=== PATIENT | female | born 1985 | race Caucasian/White ===

== ENCOUNTER → 2018-10-25 11:47 | Outpatient (CLI) | payer OTHER, SELFPAY ==
[2018-10-25 12:01] LABS: Bacteria Urine None Seen
[2018-10-25 12:28] LABS: Add Manual Diff / Slide Review NO; Basophils Percent Auto 0.8 % (0-2); Hematocrit 41.7 % (36-46); Hemoglobin 14.1 g/dL (12.0-16.0); Lymphocytes Percent Auto 26.2 % (25-40); Mean Corpuscular HGB Conc 33.9 % (30-36); Mean Corpuscular Hemoglobin 27.9 PG (26-34); Mean Corpuscular Volume 82.5 fL (80-100); Monocytes Percent Auto 5.8 % (3-14); Neutrophils Absolute Auto 6500 /uL (3000-5900); Neutrophils Percent Auto 64.2 % (50-75); Platelet Count 312 X10^3/uL (150-400); Red Blood Cell Count 5.05 X10^6/uL (4.0-5.2); Red Cell Distribution Width 13.5 % (11.6-14.8); White Blood Cell Count 10.2 X10^3/uL (4.5-11.0)
[2018-10-25 12:55] LABS: Alanine Aminotransferase 38 IU/L (9-52); Albumin 4.3 g/dL (3.5-5.0); Albumin Globulin Ratio 1.7 (1.0-2.8); Alkaline Phosphatase 94 U/L (38-126); Aspartate Aminotransferase 28 IU/L (14-36); BUN Creatinine Ratio 15.7 (6-22); Bilirubin Total 0.2 mg/dL (0.2-1.3); Blood Urea Nitrogen 11 mg/dL (7-17); Calcium 9.4 mg/dL (8.4-10.2); Carbon Dioxide 24 mmol/L (22-32); Chloride 104 mmol/L (98-107); Cholesterol 150 mg/dL (140-199); Estimated Glomerular Filt Rate > 60.0 mL/min (>60); Globulin 2.6 g/dL (1.7-4.1); Glucose 104 mg/dL (70-100); HDL Cholesterol 19 mg/dL (40-60); Potassium 4.8 mmol/L (3.4-5.1); Sodium 142 mmol/L (137-145); Total Protein 6.9 g/dL (6.3-8.2)
[2018-10-25 13:02] LABS: HEMOLYSIS 16 (0-50)
[2018-10-25 13:05] LABS: Appearance Urine UA CLOUDY; Bilirubin Urine UA NEGATIVE (NEGATIVE); Color Urine UA YELLOW; Glucose Urine UA NEGATIVE (Normal); Ketones Urine UA NEGATIVE (NEGATIVE); Leukocyte Esterase Urine UA 2+ (NEGATIVE); Nitrite Urine UA NEGATIVE (Negative); Occult Blood Urine UA 2+ (Negative); Protein Urine UA TRACE (Negative); Specific Gravity Urine UA 1.025 (1.000-1.035); Triglycerides 759 mg/dL (35-150); Urobilinogen Urine UA 0.2 E.U./dL (0.2); pH Urine UA 6.5 (4.5-8.0)
[2018-10-25 13:16] LABS: Thyroid Stimulating Hormone 1.15 uIU/mL (0.47-4.68)
[2018-10-25 13:31] LABS: RBC Urine 5-10/HPF (0-5/HPF)
[2018-10-25 13:32] LABS: Culture Indicated Urine Cult Not Indicated; Squamous Epithelial Cell Urine 5-10 /HPF; WBC Urine 10-30/HPF (0-5/HPF)
[2018-10-28 18:00] LABS: HSV 1 IgM Screen Negative (Negative); HSV 2 IgM Screen Negative (Negative)
== END ==
PROVIDERS: Family Provider Family Medicine; PCP Family Medicine; Visit Provider Family Medicine
DX: F41.9 Anxiety disorder, unspecified (principal); R30.0 Dysuria
CPT/HCPCS: 36415; 80053; 80061; 81001; 84443; 85025; 86694

== ENCOUNTER → 2018-10-31 12:27 | Outpatient (CLI) | payer OTHER, SELFPAY | PROVIDERS: Family Provider Family Medicine; PCP Family Medicine | DX: R30.0 Dysuria (principal) | CPT/HCPCS: 87086 ==

== ENCOUNTER → 2019-08-31 10:02 | Outpatient (CLI) | payer OTHER, SELFPAY ==
[2019-08-31 11:06] LABS: Hemoglobin A1C% w Est Avg Glu 5.4 % (4.0-6.0)
[2019-08-31 11:19] LABS: Triglycerides 581 mg/dL (35-150)
== END ==
PROVIDERS: PCP Family Medicine; Visit Provider Family Medicine
DX: E78.1 Pure hyperglyceridemia (principal); R73.09 Other abnormal glucose
CPT/HCPCS: 36415; 83036; 84478

== ENCOUNTER 2020-01-26 08:37 | Emergency (ER) | payer OTHER, SELFPAY ==
[2020-01-26 08:48] VITALS: BP 167/101; PULSE 92; RESP 18; TEMP 36; O2SAT 97; BMI 41.5
[2020-01-26 08:54] VITALS: BP 140/90; PULSE 92; RESP 18; O2SAT 97
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
== END 2020-01-26 09:01 | disposition home or self-care (01) ==
PROVIDERS: Emergency Provider Emergency Medicine; PCP Family Medicine
DX: K11.20 Sialoadenitis, unspecified (principal)
CPT/HCPCS: 99281; 99282

== ENCOUNTER 2020-01-27 12:57 | Emergency (ER) | payer OTHER, SELFPAY ==
[2020-01-27 13:05] VITALS: BP 154/96; PULSE 86; RESP 16; TEMP 36.9; O2SAT 99; BMI 41.5
[2020-01-27 15:00] VITALS: BP 140/90; PULSE 82; RESP 17; O2SAT 99
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
== END 2020-01-27 15:00 | disposition home or self-care (01) ==
PROVIDERS: Emergency Provider Nurse Practitioner Family; PCP Family Medicine
DX: K11.20 Sialoadenitis, unspecified (principal)
CPT/HCPCS: 99281

== ENCOUNTER → 2021-02-05 11:16 | Outpatient (CLI) | payer OTHER, SELFPAY ==
[2021-02-05] MEDS: COVID-19 VACC, Ad26(JANSSEN)/PF 0.5 ML IM (11:40)
== END ==
PROVIDERS: PCP Family Medicine; Visit Provider Internal Medicine
DX: Z23 Encounter for immunization (principal)
CPT/HCPCS: 0031A; 91303

== ENCOUNTER → 2021-06-24 09:50 | Outpatient (CLI) | payer OTHER, MEDICAID, SELFPAY ==
[2021-06-24 10:51] LABS: Hemoglobin A1C% w Est Avg Glu 6.3 % (4.0-6.0)
[2021-06-24 10:57] LABS: Cholesterol 154 mg/dL (140-199); HDL Cholesterol 20 mg/dL (40-60)
[2021-06-24 11:13] LABS: Triglycerides 642 mg/dL (35-150)
== END ==
PROVIDERS: PCP Family Medicine; Referring Provider Family Medicine; Visit Provider Family Medicine
DX: E66.01 Morbid (severe) obesity due to excess calories (principal); E78.1 Pure hyperglyceridemia; F17.200 Nicotine dependence, unspecified, uncomplicated; F41.9 Anxiety disorder, unspecified; G47.33 Obstructive sleep apnea (adult) (pediatric)
CPT/HCPCS: 36415; 80061; 83036

== ENCOUNTER 2022-05-05 10:15 | Emergency (ER) | payer OTHER, MEDICAID, SELFPAY ==
[2022-05-05 10:31] VITALS: BP 159/96; PULSE 85; RESP 18; TEMP 37.1; O2SAT 96; BMI 44.4
[2022-05-05 10:46] LABS: Bacteria Urine Few (2-10); RBC Urine 5-10/HPF (0-5/HPF); Squamous Epithelial Cell Urine 0-1 /HPF (0-5/HPF); WBC Urine 0-1/HPF (0-5/HPF)
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
--- NOTE | 2022-05-05 11:32 | DI.CT.S_ITS ---
PROCEDURE: CT ABDOMEN PELVIS W CON INDICATIONS: right flank/RLQ pain, stone vs appy. TECHNIQUE: After the administration of intravenous contrast, axial sections acquired from the lung bases to the pubic symphysis. Coronal and sagittal reformats were performed. For radiation dose reduction, the following was used: automated exposure control, adjustment of mA and/or kV according to patient size. COMPARISON: None. FINDINGS: Image quality: Excellent. Lung bases: Lung bases are clear. Heart: No significant findings. ABDOMEN: Liver: Hepatomegaly. There is diffuse hypoattenuation of the liver parenchyma relative to the spleen compatible with hepatic steatosis. Gallbladder: Unremarkable. Biliary ducts: No intrahepatic or extrahepatic biliary ductal dilatation identified. Pancreas: Homogeneous enhancement without focal lesions or pancreatic ductal dilatation. No peripancreatic inflammation or organized fluid collections. Spleen: Unremarkable. Adrenal Glands: Unremarkable. Kidneys and Ureters: Tiny punctate density in the right kidney likely representing a nonobstructing renal stone. There is a 2 mm calculus noted at the right ureterovesicular junction. No evidence for hydroureteronephrosis. No significant perinephric or periureteral stranding. Left kidney is unremarkable in appearance. No hydronephrosis. Left ureter is normal in course and caliber. No left-sided ureteral stone. Stomach and Bowel: Stomach, small bowel loops, and colon are unremarkable. Normal appendix. Peritoneum: No abnormal intraperitoneal fluid. No free air. Ventral Wall: Small fat containing umbilical hernia without acute inflammation. Abdominal Nodes: No retroperitoneal or mesenteric adenopathy by size criteria. Vessels: Aorta and inferior vena cava are normal in size. PELVIS: Pelvic Organs: Unremarkable. Bladder: As described above, tiny 2 mm stone noted at the right ureterovesicular junction. Pelvic Nodes: No enlarged lymph nodes. Miscellaneous: No hernias are seen. Bones: No suspicious osseous lesions. No acute compression fractures of the visualized spine. IMPRESSION: Nonobstructing 2 mm right ureterovesicular junction stone. No evidence for hydroureteronephrosis. Incidental note of 2 mm nonobstructing right renal calculus. Normal appendix. Fat containing umbilical hernia without acute inflammation. Mild hepatomegaly with hepatic steatosis. Dictated by: Luke Tsai M.D. on 05/05/2022 at 12:32 Approved by: Luke Tsai M.D. on 05/05/2022 at 12:37
[2022-05-05] MEDS: ONDANSETRON 4 MG/2 ML INJ IV (12:05)
[2022-05-05] MEDS: SODIUM CHLORIDE 0.9% 1,000 ML 1000 ML IV (12:05)
[2022-05-05] MEDS: KETOROLAC 30 MG/ML VIAL 15 MG IV (12:29)
[2022-05-05 12:30] VITALS: BP 155/87; PULSE 90; RESP 18; O2SAT 99
[2022-05-05 12:32] LABS: Alanine Aminotransferase 39 IU/L (<35); Albumin 4.1 g/dL (3.5-5.0); Albumin Globulin Ratio 1.4 (1.0-2.8); Alkaline Phosphatase 102 U/L (38-126); Aspartate Aminotransferase 36 IU/L (14-36); BUN Creatinine Ratio 22.6 (6-22); Bilirubin Total 0.4 mg/dL (0.2-1.3); Blood Urea Nitrogen 12 mg/dL (7-17); Calcium 9.1 mg/dL (8.4-10.2); Carbon Dioxide 22 mmol/L (22-32); Chloride 105 mmol/L (98-107); Estimated Glomerular Filt Rate > 60 mL/min (>60); Glucose 138 mg/dL (70-100); HEMOLYSIS 16 (0-50); Lipase 75 U/L (23-300); Potassium 4.2 mmol/L (3.4-5.1); Sodium 134 mmol/L (137-145); Total Protein 7.1 g/dL (6.3-8.2)
[2022-05-05 12:34] LABS: Add Manual Diff / Slide Review NO; Basophils Absolute Auto 100 /uL (0-100); Basophils Percent Auto 1.1 % (0-2); Eosinophils Absolute Auto 200 /uL (0-450); Eosinophils Percent Auto 1.8 % (2-4); Hematocrit 39.9 % (36-46); Hemoglobin 13.5 g/dL (12.0-16.0); Lymphocytes Absolute Auto 3100 /uL (1100-4500); Lymphocytes Percent Auto 28.6 % (25-40); Mean Corpuscular HGB Conc 33.9 % (30-36); Mean Corpuscular Hemoglobin 27.4 PG (26-34); Mean Corpuscular Volume 80.8 fL (80-100); Monocytes Absolute Auto 600 /uL (0-900); Monocytes Percent Auto 5.8 % (3-14); Neutrophils Absolute Auto 6800 /uL (1500-7000); Neutrophils Percent Auto 62.7 % (50-75); Platelet Count 286 X10^3/uL (150-400); Red Blood Cell Count 4.94 X10^6/uL (4.0-5.2); Red Cell Distribution Width 13.4 % (11.6-14.8); White Blood Cell Count 10.8 X10^3/uL (4.5-11.0)
[2022-05-05 14:31] VITALS: BP 142/80; PULSE 87; RESP 16; O2SAT 99
== END 2022-05-05 14:31 | disposition home or self-care (01) ==
PROVIDERS: Emergency Provider Emergency Medicine; PCP Family Medicine
DX: N20.0 Calculus of kidney (principal)
CPT/HCPCS: 36415; 74177; 80053; 81003; 81015; 81025; 83690; 85025; 87086; 96361; 96374; 96375; 99284; J1885; J2405

== ENCOUNTER → 2023-11-02 08:28 | Outpatient (CLI) | payer OTHER, MEDICAID, SELFPAY ==
[2023-11-02 09:10] LABS: Add Manual Diff / Slide Review NO; Basophils Absolute Auto 100 /uL (0-100); Basophils Percent Auto 0.9 % (0-2); Eosinophils Absolute Auto 200 /uL (0-450); Hematocrit 40.4 % (36-46); Hemoglobin 13.9 g/dL (12.0-16.0); Lymphocytes Absolute Auto 2800 /uL (1100-4500); Lymphocytes Percent Auto 29.4 % (25-40); Mean Corpuscular HGB Conc 34.5 % (30-36); Mean Corpuscular Hemoglobin 28.1 PG (26-34); Mean Corpuscular Volume 81.6 fL (80-100); Monocytes Absolute Auto 600 /uL (0-900); Monocytes Percent Auto 6.1 % (3-14); Neutrophils Absolute Auto 5900 /uL (1500-7000); Neutrophils Percent Auto 61.6 % (50-75); Platelet Count 269 X10^3/uL (150-400); Red Blood Cell Count 4.94 X10^6/uL (4.0-5.2); Red Cell Distribution Width 13.2 % (11.6-14.8); White Blood Cell Count 9.6 X10^3/uL (4.5-11.0)
[2023-11-02 09:22] LABS: Hemoglobin A1C% w Est Avg Glu 8.3 % (4.0-6.0)
[2023-11-02 10:04] LABS: Alanine Aminotransferase 70 IU/L (<35); Albumin 3.8 g/dL (3.5-5.0); Albumin Globulin Ratio 1.3 (1.0-2.8); Alkaline Phosphatase 114 U/L (38-126); Aspartate Aminotransferase 60 IU/L (14-36); BUN Creatinine Ratio 26.7 (6-22); Bilirubin Total 0.4 mg/dL (0.2-1.3); Blood Urea Nitrogen 12 mg/dL (7-17); Calcium 9.5 mg/dL (8.4-10.2); Carbon Dioxide 20 mmol/L (22-32); Chloride 103 mmol/L (98-107); Cholesterol 215 mg/dL (140-199); Estimated Glomerular Filt Rate > 60 mL/min (>60); Glucose 226 mg/dL (70-100); HDL Cholesterol 21 mg/dL (40-60); Potassium 4.7 mmol/L (3.4-5.1); Sodium 132 mmol/L (137-145); Total Protein 6.8 g/dL (6.3-8.2)
[2023-11-02 10:31] LABS: TSH w/ Reflex to FT4 1.45 uIU/mL (0.47-4.68)
[2023-11-02 11:25] LABS: HEMOLYSIS 15 (0-50)
[2023-11-02 11:26] LABS: Triglycerides 1943 mg/dL (35-150)
== END ==
PROVIDERS: PCP Family Medicine; Referring Provider Family Medicine; Visit Provider Family Medicine
DX: E78.1 Pure hyperglyceridemia (principal); F17.200 Nicotine dependence, unspecified, uncomplicated; E66.01 Morbid (severe) obesity due to excess calories; R73.03 Prediabetes; N94.6 Dysmenorrhea, unspecified; F41.9 Anxiety disorder, unspecified
CPT/HCPCS: 36415; 80053; 80061; 83036; 84443; 85025

== ENCOUNTER → 2023-11-30 08:26 | Outpatient (CLI) | payer OTHER, MEDICAID, SELFPAY ==
[2023-11-30 10:18] LABS: Alanine Aminotransferase 52 IU/L (<35); Albumin Globulin Ratio 1.3 (1.0-2.8); Alkaline Phosphatase 111 U/L (38-126); BUN Creatinine Ratio 31.6 (6-22); Bilirubin Total 0.6 mg/dL (0.2-1.3); Blood Urea Nitrogen 18 mg/dL (7-17); Calcium 9.6 mg/dL (8.4-10.2); Carbon Dioxide 25 mmol/L (22-32); Chloride 100 mmol/L (98-107); Cholesterol 158 mg/dL (140-199); Estimated Glomerular Filt Rate > 60 mL/min (>60); Globulin 3.2 g/dL (1.7-4.1); Glucose 192 mg/dL (70-100); HDL Cholesterol 23 mg/dL (40-60); HEMOLYSIS < 15 (0-50); Potassium 4.3 mmol/L (3.4-5.1); Sodium 134 mmol/L (137-145); Total Protein 7.2 g/dL (6.3-8.2)
[2023-11-30 10:32] LABS: Triglycerides 903 mg/dL (35-150)
[2023-11-30 11:03] LABS: Hep C Virus Ab w/Reflex Quant NEGATIVE s/c (NEGATIVE)
[2023-12-01 02:07] LABS: HBsAg Screen Negative (Negative); Hepatitis A Antibody IgM Negative (Negative); Hepatitis B Core Antibody IgM Negative (Negative); Hepatitis C Antibody Non Reactive (Non Reactive)
[2023-12-01 06:44] LABS: Apolipoprotein B 74 mg/dL (<90)
[2023-12-03 14:42] LABS: Aspartate Aminotransferase 43 IU/L (14-36)
== END ==
PROVIDERS: PCP Family Medicine; Referring Provider Family Medicine; Visit Provider Family Medicine
DX: E78.5 Hyperlipidemia, unspecified (principal); E78.1 Pure hyperglyceridemia; E11.9 Type 2 diabetes mellitus without complications
CPT/HCPCS: 36415; 80053; 80061; 80074; 82172; 83036; 86803

== ENCOUNTER → 2024-05-29 16:18 | Outpatient (CLI) | payer OTHER, MEDICAID, SELFPAY ==
--- NOTE | 2024-05-29 16:21 | DI.RAD.S_ITS ---
PROCEDURE: XR ANKLE LT MIN 3V INDICATIONS: Left ankle pain TECHNIQUE: 3 views of the ankle were acquired. COMPARISON: None. FINDINGS: Bones: No fractures or dislocations. Ankle mortise is normally aligned. No suspicious bony lesions. Soft tissues: Moderate tibiotalar joint effusion. Achilles tendon appears normal. IMPRESSION: No acute bony abnormality. Moderate joint effusion. Internal derangement not excluded. Dictated by: Rupert Wolf M.D. on 05/29/2024 at 17:25 Approved by: Rupert Wolf M.D. on 05/29/2024 at 17:25
== END ==
LOC: RAD 16:20
PROVIDERS: PCP Family Medicine; Referring Provider Nurse Practitioner Family; Visit Provider Nurse Practitioner Family
DX: S93.402A Sprain of unspecified ligament of left ankle, initial encounter (principal); M25.472 Effusion, left ankle; X58.XXXA Exposure to other specified factors, initial encounter
CPT/HCPCS: 73610

== ENCOUNTER 2024-07-06 19:11 | Emergency (ER) | payer OTHER, MEDICAID, SELFPAY ==
[2024-07-06] VITALS (8 sets, daily range): BP systolic 127–137; BP diastolic 72–90; PULSE 83–93; RESP 16–18; TEMP 36.9; O2SAT 98–100; BMI 43.2
[2024-07-06 20:09] LABS: Add Manual Diff / Slide Review NO; Basophils Absolute Auto 100 /uL (0-100); Basophils Percent Auto 1.1 % (0-2); Eosinophils Absolute Auto 200 /uL (0-450); Hematocrit 40.1 % (36-46); Hemoglobin 13.6 g/dL (12.0-16.0); Lymphocytes Absolute Auto 3800 /uL (1100-4500); Lymphocytes Percent Auto 30.3 % (25-40); Mean Corpuscular Hemoglobin 27.5 PG (26-34); Mean Corpuscular Volume 80.7 fL (80-100); Monocytes Absolute Auto 700 /uL (0-900); Monocytes Percent Auto 5.3 % (3-14); Neutrophils Absolute Auto 7800 /uL (1500-7000); Neutrophils Percent Auto 61.3 % (50-75); Platelet Count 281 X10^3/uL (150-400); Red Blood Cell Count 4.97 X10^6/uL (4.0-5.2); Red Cell Distribution Width 13.3 % (11.6-14.8); White Blood Cell Count 12.7 X10^3/uL (4.5-11.0)
[2024-07-06 20:16] LABS: Alanine Aminotransferase 56 IU/L (<35); Albumin 4.3 g/dL (3.5-5.0); Albumin Globulin Ratio 1.3 (1.0-2.8); Alkaline Phosphatase 111 U/L (38-126); Aspartate Aminotransferase 46 IU/L (14-36); Bilirubin Total 0.4 mg/dL (0.2-1.3); Blood Urea Nitrogen 8 mg/dL (7-17); Calcium 9.5 mg/dL (8.4-10.2); Carbon Dioxide 20 mmol/L (22-32); Chloride 106 mmol/L (98-107); Estimated Glomerular Filt Rate > 60 mL/min (>60); Globulin 3.2 g/dL (1.7-4.1); Glucose 220 mg/dL (70-100); HEMOLYSIS < 15 (0-50); Lipase 77 U/L (23-300); Potassium 4.2 mmol/L (3.4-5.1); Sodium 135 mmol/L (137-145); Total Protein 7.5 g/dL (6.3-8.2)
[2024-07-06 21:19] LABS: Appearance Urine UA CLOUDY; Bilirubin Urine UA 1+ (NEGATIVE); Color Urine UA YELLOW; Glucose Urine UA 2+ g/dL (Negative); Ketones Urine UA TRACE (NEGATIVE); Leukocyte Esterase Urine UA NEGATIVE (NEGATIVE); Nitrite Urine UA POSITIVE (Negative); Occult Blood Urine UA 3+ (Negative); Protein Urine UA 2+ (Negative); Specific Gravity Urine UA >=1.030 (1.000-1.035)
[2024-07-06 21:20] LABS: Pregnancy Test Urine Negative (Negative)
[2024-07-06 21:35] LABS: Bacteria Urine Many (>30); RBC Urine 10-30/HPF (0-5/HPF); Urine Volume 10mL (spun); WBC Urine 5-10/HPF (0-5/HPF)
[2024-07-06 21:36] LABS: Culture Indicated Urine Specimen Cultured; Squamous Epithelial Cell Urine 10-30 /HPF (0-5/HPF)
[2024-07-06 21:37] LABS: Ictotest Urine Negative (Negative)
[2024-07-06 21:39] LABS: HCG Quantitative /Beta subunit < 2.39 mIU/mL
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
[2024-07-06] MEDS: cefTRIAXone 1,000 MG in SODIUM CHLORIDE 0.9% 100 ML 200 MG IV (22:44)
[2024-07-06] MEDS: TRAMADOL 50 MG PREPACK 1 BOTTLE MISC (22:46)
[2024-07-06] MEDS: PHENAZOPYRIDINE 100 MG TABLET 200 MG PO (22:46)
== END 2024-07-06 23:10 | disposition home or self-care (01) ==
PROVIDERS: Emergency Provider Emergency Medicine; PCP Family Medicine
DX: N39.0 Urinary tract infection, site not specified (principal)
CPT/HCPCS: 36415; 80053; 81001; 81025; 83690; 84702; 85025; 87086; 96365; 99284; J0696

== ENCOUNTER → 2024-08-31 07:55 | Outpatient (CLI) | payer OTHER, MEDICAID, SELFPAY ==
[2024-08-31 08:49] LABS: Creatinine Urine Random 154.21 mg/dL
[2024-08-31 08:52] LABS: Microalbumin Urine Random 12.8 mg/dL (0-1.6)
[2024-08-31 09:57] LABS: Alanine Aminotransferase 74 IU/L (<35); Albumin 4.3 g/dL (3.5-5.0); Albumin Globulin Ratio 1.5 (1.0-2.8); Alkaline Phosphatase 101 U/L (38-126); Aspartate Aminotransferase 63 IU/L (14-36); Bilirubin Total 0.5 mg/dL (0.2-1.3); Blood Urea Nitrogen 11 mg/dL (7-17); Calcium 9.7 mg/dL (8.4-10.2); Carbon Dioxide 21 mmol/L (22-32); Chloride 104 mmol/L (98-107); Cholesterol 138 mg/dL (140-199); Estimated Glomerular Filt Rate > 60 mL/min (>60); Globulin 2.9 g/dL (1.7-4.1); Glucose 176 mg/dL (70-100); HDL Cholesterol 27 mg/dL (40-60); HEMOLYSIS < 15 (0-50); Potassium 4.9 mmol/L (3.4-5.1); Sodium 133 mmol/L (137-145); Total Protein 7.2 g/dL (6.3-8.2)
[2024-08-31 10:16] LABS: Hemoglobin A1C% w Est Avg Glu 7.3 % (4.0-6.0)
[2024-08-31 10:25] LABS: Triglycerides 668 mg/dL (35-150)
[2024-09-01 03:36] LABS: Apolipoprotein B 71 mg/dL (<90)
== END ==
PROVIDERS: PCP Family Medicine; Referring Provider Family Medicine; Visit Provider Family Medicine
DX: E11.9 Type 2 diabetes mellitus without complications (principal); E78.5 Hyperlipidemia, unspecified; L73.2 Hidradenitis suppurativa
CPT/HCPCS: 36415; 80053; 80061; 82043; 82172; 82570; 83036

== ENCOUNTER 2025-06-20 09:24 | Emergency (ER) | payer OTHER, SELFPAY ==
[2025-06-20 09:32] VITALS: BP 146/91; PULSE 93; RESP 16; TEMP 36.6; O2SAT 97; BMI 39.9
[2025-06-20 10:12] LABS: Strep Grp A by PCR Rapid Positive (Negative)
[2025-06-20 10:36] LABS: COVID-19 CEPHEID 4-PLEX PCR Negative (Negative); Influenza A - CEPHEID Flu A NEGATIVE (NEGATIVE); Influenza B - CEPHEID Flu B NEGATIVE (NEGATIVE)
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
[2025-06-20] MEDS: ACETAMINOPHEN 325 MG TABLET 975 MG PO (11:26)
[2025-06-20] MEDS: KETOROLAC 30 MG/ML VIAL IM (11:27)
[2025-06-20] MEDS: AMOXICILLIN 250 MG CAPSULE 500 MG PO (11:27)
[2025-06-20 11:54] VITALS: BP 138/79; PULSE 87; RESP 20; TEMP 36.6; O2SAT 99
== END 2025-06-20 11:56 | disposition home or self-care (01) ==
PROVIDERS: Emergency Medicine; Emergency Provider Physician Assistant
DX: J02.0 Streptococcal pharyngitis (principal)
CPT/HCPCS: 87070; 87077; 87147; 87637; 87651; 96372; 99283; 99284; J1885

== ENCOUNTER 2025-07-11 17:24 | Emergency (ER) | payer OTHER, SELFPAY ==
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
[2025-07-11 17:43] VITALS: BP 134/88; PULSE 83; RESP 15; TEMP 36.1; O2SAT 99; BMI 39.1
--- NOTE | 2025-07-11 17:52 | DI.RAD.S_ITS ---
PROCEDURE: XR KNEE RT 3V INDICATIONS: R knee pain popping; cocnern quad tendon injury TECHNIQUE: 3 views of the knee were acquired. COMPARISON: None. FINDINGS: Bones: No fractures or dislocations. No suspicious bony lesions. Soft tissues: No joint effusion. No suspicious soft tissue calcifications. IMPRESSION: No acute bony abnormality or significant effusion. If symptoms persist with conservative management, consider cross-sectional imaging such as CT or MRI. Approved by: Jessy Singh M.D.,Ph.D. on 07/11/2025 at 18:41
[2025-07-11] MEDS: KETOROLAC 30 MG/ML VIAL IM (18:11)
[2025-07-11 19:09] VITALS: BP 138/84; PULSE 64; RESP 16; O2SAT 99
== END 2025-07-11 19:17 | disposition home or self-care (01) ==
PROVIDERS: Emergency Provider Physician Assistant
DX: S76.111A Strain of right quadriceps muscle, fascia and tendon, initial encounter (principal); X50.9XXA Other and unspecified overexertion or strenuous movements or postures, initial encounter
CPT/HCPCS: 73562; 96372; 99283; J1885